=== PATIENT | female | born 1945 | race Caucasian/White ===

== ENCOUNTER 2016-08-13 04:39 | Observation (INO) | payer MEDICARE ==
[~2016-08-13] VITALS: Ht 170.2 cm; Wt 68.4 kg
[2016-08-13] VITALS (9 sets, daily range): BP systolic 101–143; BP diastolic 56–75; PULSE 69–98; RESP 16–20; O2SAT 97–100
[~2016-08-13 04:39] MED LIST: FURO40TA PO; GABA400C PO; Xanax; ZES5 PO; [UNRECOGNIZED DRUG - CODE] PO
[2016-08-13 05:23] LABS: BASOPHILS % (AUTO) 0.8 % (0-3); EOSINOPHILS % (AUTO) 3.5 % (0-5); MONOCYTES % (AUTO) 9.4 % (4-12); Mean Corpuscular Hemoglobin 29.4 pg (27.0-35.0); Mean Corpuscular Volume 85.4 fL (81-100); NEUTROPHILS % (AUTO) 59.8 % (40-74); Platelet Count 266 bil/L (150-400)
[2016-08-13 05:32] LABS: APPEARANCE,URINE CLEAR (CLEAR,HAZY); COLOR,URINE YELLOW (YELLOW); OCCULT BLOOD,URINE NEGATIVE (NEGATIVE); UROBILINOGEN,URINE NORMAL (NORMAL)
[2016-08-13 05:52] LABS: Magnesium 2.1 mg/dL (1.6-2.6)
--- NOTE | 2016-08-13 06:05 | ED.REPORT ---
HPI-General Illness Date of Service Aug 13, 2016 ED Provider: Bobby Cardoso MD The pt is a 70 y/o female w/ a hx of peripheral neuropathy, hyperthyroidism, and asthma presenting to the ED w/ complaints of SOB that began one month ago but worsened 5 hours ago. She checked her HR at 0200, after noticing the SOB and left arm pain and chest discomfort, w/ a pulse oximeter and saw that is was 32 BPM, which she has a picture of, and checked an hour later and saw that it was 56 BPM. She reports taking a full strength aspirin last night. She describes the SOB as worsening w/ exertion, feeling a heaviness in her chest, and it been getting worse over the last month, and it affecting her ADLs. She also reports feeling nauseous and burping helps relieve it. Her HR was as high as 114 when she saw a doctor last week.She also has had increased cramping in her R leg which began about a year ago and has worsened over the last week and leg weakness which causes her to use a walker or cane for the last ten years.She has had a stress test in the past, which she reports passing and had a carotid test done and told she had "a bit of blockage" on the right. She denies any fever, dizziness, lightheadedness, infections, and has not been put on antibiotics recently. She also reports having high BP when in pain, and her face getting "fiery" red and feeling hot during these episodes. Nursing Notes Stated Complaint: HEART RATE HIGH/LOW, NAUSEA, STOMACH PAIN Chief Complaint: Female Abdominal Pain Nursing Notes Reviewed: Yes ([employer], [employer] not reconciled) Allergies: Coded Allergies: Penicillins (Verified Allergy, Severe, RASH, 08/13/16) Quinolones (Verified Allergy, Severe, SEVER RECENT ALLERGY, 08/13/16) atropine (Verified Allergy, Severe, 08/13/16) Her doctor told her diphenoxylate (Verified Allergy, Severe, HIVES, 08/13/16) Replaces DIPHENOXYLATE2 tetracycline (Verified Allergy, Severe, 08/13/16) doxycycline (Verified Allergy, Unknown, 08/13/16) meperidine (Verified Adverse Reaction, Severe, N/V, 08/13/16) morphine (Verified Adverse Reaction, Severe, N/V, 08/13/16) Uncoded Allergies: SULFA (Allergy, Severe, RASH, 02/09/09) LEVOQUIN (Allergy, Unknown, 10/21/14) NKDA (Allergy, Unknown, 02/09/04) Opiate Agonists (Narcotics) (Allergy, Unknown, 02/09/04) MORPHINE CAUSES N/V SULFA=SWELLING,LOMOTIL=HIVES,CATGUT,PCN=HIVES,DEMEROL,MS (Allergy, Unknown , 02/09/04) ANTIDIARRHEA AGENTS (Adverse Reaction, Unknown, 02/09/04) Scheduled Alprazolam (Alprazolam) 1 Mg Tablet 1 MG PO TID Ascorbic Acid (Vitamin C) 1,000 Mg Tab.chew 1,000 MG PO DAILY Aspirin (Aspirin) 81 Mg Tablet 81 MG PO DAILY Cholecalciferol (Vitamin D3) (Vitamin D) 5,000 Unit Capsule 5,000 UNIT PO TID Furosemide (Furosemide) 20 Mg Tab 20 MG PO BID Lactobacillus Combo No.10 (Probiotic) 1 Each Capsule 1 CAPSULE PO DAILY Lisinopril (Lisinopril) 2.5 Mg Tablet 2.5 MG PO DAILY Methimazole (Methimazole) 5 Mg Tablet 1 MG PO DAILY Potassium Chloride (Potassium Chloride) 20 Meq Tab.er.prt 20 MEQ PO DAILY Ranitidine HCl (Acid Truck Safety Inspector) 75 Mg Tablet 150 MG PO BID Zinc Gluconate (Zinc) 50 Mg Tablet 50 MG PO DAILY Scheduled PRN Albuterol HFA (Proair HFA) 8.5 Gm Hfa.aer.ad 1 PUFF IH DAILY PRN PRN For Shortness of Breath Fluticasone Propionate (Flonase Allergy Relief) 50 Mcg/Actuation [place].susp 1 SPRAY NS DAILY PRN PRN Sneezing General Time Seen by MD: 06:09 Chief Complaint Breathing problem Hx Obtained From: Patient, Daughter Arrived By: Walk-in Sudden in Onset?: Yes Onset Occurred: 5 - 8 hours ago Symptom Duration: Intermittent Severity: Current: No pain currently Pertinent Negative: Pt denies other symptoms Recent Healthcare: No recent hospitalization, Recent doctor visit Similar Sx Previous: Yes Past Medical History Past Medical History Hyperthyroid Martinez's esophagus and GERD History of idiopathic neuropathy history of asthma Possible history of peripheral vascular disease, patient previously on Plendil, status post invitation of toes from osteomyelitis years ago Thyroid nodule Past Surgical History Hernia repair Nasal surgery Surgery secondary to osteomyelitis Smoking History Former Smoker (quit in the 70s) Social History Patient's recently (07/2016) Alcohol Use: Denies alcohol use Drug Use: Denies drug use Ambulatory Status Independent Review of Systems Full Review of Systems Constitutional: Denies: Chills, Fever Respiratory: Reports: Shortness of breath, Denies: Non-productive cough Cardiovascular: Reports: Chest pain GI: Reports: Nausea, Denies: Abdominal pain, Vomiting Musculoskeletal: Reports: Extremity pain (L arm pain and R leg cramping), Denies: Neck pain Neurologic: Denies: Dizziness, Lightheaded Complete sys rev & neg: except as marked. Physical Exam Vital Signs Vital Signs Date Time Temp Pulse Resp B/P Pulse Ox O2 Delivery O2 Flow Rate FiO2 08/13/16 07:21 88 18 101/62 97 Room Air 08/13/16 04:42 36.1 84 18 143/75 100 Room Air Initial VS: Reviewed, Vital signs normal General/Constitutional: Awake, Alert Provides somewhat vague history, she a poor historian. Head / Eyes: Atraumatic, Normocephalic ENT: Atraumatic, Airway patent Neck: Atraumatic, Supple, Full range of motion Respiratory / Chest: Atraumatic, Breath sounds NL, No respiratory distress, No rales, No rhonchi, No wheezing Cardiovascular: Heart rate NL, Regular rhythm, Heart sounds NL No bradycardia at this time Abdomen: Atraumatic, Soft, Non-tender Lower Extremity / Pelvis / MS: Inspection NL, Full range of motion Neurologic: Oriented X3, Speech NL, No motor deficits, No sensory deficits Abnormal Mood/Affect: Positive: Anxious, Depressed Interpretation & Diagnostics Lab Results Interpretation Result Diagram: 08/13/16 0515 08/13/16 0515 Test 08/13/16 05:10 08/13/16 05:15 Hold [place] Top Tube Received (Received) White Blood Count 8.8th/mm3 (3.8-10.1) Red Blood Count 4.45mil/mm3 (3.90-5.20) Hemoglobin 13.1g/dL (12.0-15.6) Hematocrit 38.0% (35.0-46.0) Mean Corpuscular Volume 85.4fL (81-100) Mean Corpuscular Hemoglobin 29.4pg (27.0-35.0) Mean Corpuscular Hemoglobin Concent 34.5% (32.0-37.0) Red Cell Distribution Width 14.6% (12.3-15.4) Platelet Count 266bil/L (150-400) Neutrophils (%) (Auto) 59.8% (40-74) Lymphocytes (%) (Auto) 26.3% (14-46) Monocytes (%) (Auto) 9.4% (4-12) Eosinophils (%) (Auto) 3.5% (0-5) Basophils (%) (Auto) 0.8% (0-3) Urine Color Yellow (YELLOW) Urine Appearance Clear (CLEAR,HAZY) Urine pH 6.0 (5.0-8.0) Urine Specific [place] 1.010 (1.003-1.035) Urine Protein Negativemg/dL (NEG,TRACE) Urine Glucose (UA) Negativemg/dL (NEGATIVE) Urine Ketones Negativemg/dL (NEGATIVE) Urine Occult Blood Negative (NEGATIVE) Urine Nitrite Negative (NEGATIVE) Urine Bilirubin Negative (NEGATIVE) Urine Urobilinogen Normalmg/dL (NORMAL) Urine Leukocyte Esterase Negative (NEGATIVE) Urine RBC 0-2/hpf (0-2) Urine WBC 0-5/hpf (0-5) Urine Epithelial Cells Moderate/hpf (NONE-MOD) Urine Crystals None seen (NONE SEEN) Urine Bacteria Few/hpf (NONE-FEW) Urine Hyaline Casts None/lpf (NONE) Urine Granular Casts None seen (NONE SEEN) Urine Waxy Casts None seen (NONE SEEN) Urine Red Blood Cell Casts None seen (NONE SEEN) Urine White Blood Cell Casts None seen (NONE SEEN) Urine Mucus None seen (None Seen) Urine Trichomonas None seen (NONE SEEN) Urine Yeast None (NONE SEEN) Urinalysis Comment None Urine Culture Reflexed Not indicated Hold Urine Received (Received) Sodium Level 139mEq/L (134-144) Potassium Level 3.7mEq/L (3.5-5.2) Chloride Level 96mEq/L (97-108) Carbon Dioxide Level 27mmol/L (18-29) Blood Urea Nitrogen 22mg/dL (8-27) Creatinine 0.86mg/dL (0.57-1.00) Estimat Glomerular Filtration Rate 93mL/min (>59) Glucose Level 120mg/dL (60-99) Calcium Level 10.1mg/dL (8.5-10.1) Magnesium Level 2.1mg/dL (1.6-2.6) Total Bilirubin 0.3mg/dL (0.0-1.2) Aspartate Amino Transf (AST/SGOT) 21U/L (0-50) Alanine Aminotransferase (ALT/SGPT) 13U/L (0-32) Alkaline Phosphatase 112U/L (25-165) Troponin T < 0.010ug/L (0.0-0.011) Total Protein 7.6g/dL (6.4-8.4) Albumin 4.3g/dL (3.4-5.0) Lipase 37U/L (13-60) Thyroid Stimulating Hormone (TSH) 4.110uIU/mL (0.450-4.500) Free Thyroxine 1.33ng/dL (0.82-1.77) Lab Results Interpretation: CBC normal CMP normal Troponin #1 negative Magnesium normal TSH and T4 normal ECG Interpretation ECG Interpretation: NSR at a rate of 70 No PVC on the 12 lead No episodes of bradycardia Time: 06:54 Interpreted by: ED physician X-Ray Chest Interpretation Chest Xray Interpretation: Normal, no acute disease Interpretation / Wet Read by: Wet read ED physician Re-Eval/Medical Decision Med Decision/Clinical Course This is a 70-year-old vague and wandering historian is difficult to focus. It sounds like she recently lost her adding to some stress and anxiety, and she presents today because she developed chest pain, shortness of breath, radiation of the left arm, in the middle the night and took a pulse ox because she is to work with respiratory, and noted her heart rate was 37. She denies palpitations or near-syncope. She is vague as to whether or not there was diaphoresis. She called family member, was brought to the ED. Although is very difficult and took about 10-15 minutes of actual history taking where she talks about ulcerative variety of thinks over variety timelines including months and years, it was the chest discomfort and left arm discomfort and low heart rate that brought her to the emergency department with her family. It took a while to figure out if this staff woke her from sleep, but she says she is "at night owl" and was simply already wide awake when the symptoms occurred. She has had some shortness of breath with exertion this been progressive over a month before this episode of chest discomfort. She denies prior history of known cardiac disease, and had a negative Sick and nuclear stress test in 2010. However she has risk factors of smoking, prediabetes, hypertension, family history, and as well as a history of known peripheral vascular disease (see MRI with runoff of lower extremities in 2009). she has had osteomyelitis of the toes years past, and according to previous notes was on Plendil at one point. She tells me she is not on Plendil present, but she did have aspirin before coming in already. Physical exam is normal there are no hard findings. EKG is no clear acute ischemic disease. Blood work was normal, she is worried about her thyroid if she has recently been placed on methimazole for hyperthyroidism and has a known thyroid nodule, but her thyroid studies today the department are normal. The variety and depth of her symptoms which are nonspecific and she has a diffusely positive review of symptoms, there is a chance that some of her presentation may be stress-related following the of her recently- but she describes enough features with chest pressure or tightness shortness breath left arm radiation, exertional component in the setting of peripheral vascular disease as well as reported low heart rate (she brought in a picture of her pulse ox on her finger with a heart rate of 37) I think it is reasonable to observation admit for telemetry monitoring and serial enzymes with follow-up stress testing. She had no significant dysrhythmic events beyond occasional asymptomatic premature ventricular contractions, she had no bradycardia here. The case is discussed with the hospital's. Nitropaste was initially ordered, was held because the blood pressure was on the low 100s. Currently she does not have any chest discomfort. Case is discussed the hospitalist and the patient's being admitted for further management. Source of Hx: Old records Consultation : Referral / Consult Name: Blake Flores MD Consulted With: Hospitalist Call Returned at: 08:05 Registered Nurse Practitioner: Accepts admit Differential Diagnosis: Positive: Depression, Negative: Abdominal pain, Abscess, Allergies, Bronchitis, acute, Cellulitis, Drug dependence, Fracture, Laceration, Malingering, Medical clearance, Neutropenia, Pneumonia Counseled Regarding: Diagnosis, Lab results, Need for follow-up, Need for admission Discharge & Departure Primary Impression: Chest pain Chest pain type: unspecified Qualified Code: R07.9 - Chest pain, unspecified Additional Impressions: Shortness of breath Depression Depression Type: unspecified Qualified Code: F32.9 - Major depressive disorder, single episode, unspecified Acute stress reaction Bradycardia Disposition: ADMITTED TO HOSPITAL Discharge Condition All VS Reviewed: Yes Condition: Stable Referrals: Malorie Renner PA-C (PCP) Scribe Attestation Portions of this note were transcribed by Farhad Ramsey. I, Dr. Coleman personally performed the history, physical exam and medical decision- making; I reviewed and confirmed the accuracy of the information in the transcribed note. Signed by: Farhad Ramsey. 08/13/2016, 15:00. copies to: Malorie Renner PA-C, Matthew F MD Aug 13, 2016 06:05 Farhad Willson Aug 13, 2016 06:16 SYLWIA RAMSEY Aug 13, 2016 07:23
[2016-08-13] MEDS ORDERED: Nitroglycerin 2% 1 Gm Ointment TOPICAL SCH (06:45)
--- NOTE | 2016-08-13 07:49 | DRSVH ---
PROCEDURE: X-RAY CHEST ONE VIEW, PORTABLE ([id number]) INDICATIONS: SOB TECHNIQUE: One view of the chest was acquired. COMPARISON: [facility], , CHEST 2VW, 06/23/2014, 11:45. FINDINGS: Surgical changes and devices: None. Lungs and pleura: No pleural effusions or pneumothorax. Lungs are clear. Mediastinum: Mediastinal contours appear normal. Heart size is normal. Bones and chest wall: No suspicious bony lesions. Overlying soft tissues appear unremarkable. IMPRESSION: No acute pulmonary process. Dictated by: Grecia Castillo M.D. on 08/13/2016 at 7:48 Approved by: Grecia Castillo M.D. on 08/13/2016 at 7:48
[2016-08-13 07:54] LABS: Magnesium 2.1 mg/dL (1.6-2.6); TROPONIN T < 0.010 ug/L (0.0-0.011)
[2016-08-13] MEDS ORDERED: LISI2.5T PO (08:00)
[2016-08-13] MEDS ORDERED: POTA20TA16 PO (08:00)
[2016-08-13] MEDS ORDERED: FUR20 PO (08:00)
[2016-08-13] MEDS ORDERED: ASPI-973 PO (08:01)
[2016-08-13] MEDS ORDERED: ALPR1TAB7 PO (08:05)
[2016-08-13] MEDS ORDERED: ALBU8.5H2 IH (08:05)
[2016-08-13] MEDS ORDERED: RANI75TA30 PO (08:05)
[2016-08-13] MEDS ORDERED: FLUT9.9S NS (08:08)
[2016-08-13] MEDS ORDERED: ZINC50TA4 PO (08:13)
[2016-08-13] MEDS ORDERED: CHOL500051 PO (08:13)
[2016-08-13] MEDS ORDERED: ASCO100089 PO (08:13)
[2016-08-13] MEDS ORDERED: METH5TAB5 PO (08:13)
[2016-08-13] MEDS ORDERED: LACT1CAP75 PO (08:13)
[2016-08-13] MEDS ORDERED: Alum-Mag Hydrox-Simeth 30 mL Suspension PO PRN ×2 (08:15→08:40)
[2016-08-13] MEDS ORDERED: Ondansetron 2 mg/mL 2 mL Inj IVPUSH PRN ×2 (08:15→08:40)
[2016-08-13] MEDS ORDERED: Polyethylene Glycol (PEG) 17 Gm Powder PO PRN (08:15)
[2016-08-13] MEDS: Heparin 5,000 Unit/mL Inj SUBQ SCH ×2 (08:30→17:51)
[2016-08-13] MEDS ORDERED: 0.9% Sodium Chloride 1,000 ML IV SCH (08:36)
[2016-08-13] MEDS ORDERED: MECL-114 PO (08:50)
--- NOTE | 2016-08-13 09:00 | NUR ---
Admit pt arrived on unit from ED with admit nurse. Med rec and admission completed. Pt is alert and oriented X3. VS within normal limits. On RA. Pt denied chest pain. Patient has mild lift sided droopiness d/t [place] Palsy. Pt has bandages on her right foot that she refused to take off and stated that they are there just to prevent friction. Right 1st and 2nd toe have had surgeries that are healed. Left heel is has blanchable redness. Pt is on observation status d/t neg trops and normal ekg Per tele SR 50-60s w/occasional PVCs.
[2016-08-13 12:24] LABS: APPEARANCE,URINE CLEAR (CLEAR,HAZY); COLOR,URINE STRAW (YELLOW); OCCULT BLOOD,URINE NEGATIVE (NEGATIVE); PH,URINE 7.5 (5.0-8.0); UROBILINOGEN,URINE NORMAL (NORMAL)
[2016-08-13 12:38] LABS: TROPONIN T < 0.010 ug/L (0.0-0.011)
--- NOTE | 2016-08-13 14:13 | NUR ---
Social Work: initial Assessment Late Entry Data & Assessment: SW met with patient, patient's daughter Nisreen Núñez [phone], and patient's friend Coby Grajeda to complete initial assessment, SW role reviewed, and and discharge planning discussed. patient has Medicare and [employer] as insurance and see Malorie Renner PA-C for primary care. Patient does not have VA or LTC benefits. patient lives at home alone in a one story home that has ramp access and one step on the inside. Patient has never been to a Residential Facility and has had HH in the past, but can not recall the name. Patient does not have a DPOA and SW proved patient with the information. Patient does not have any current discharge needs. SW will continue to follow. Plan: Patient will likely discharge via POV. SW will continue to follow. Florin ash LMSW, [facility] Addendum: 08/14/16 at 1424 by FLORIN ASH Amended: Links added.
--- NOTE | 2016-08-13 15:56 | NUR ---
ELIZABETH explained and signed. Copy of ELIZABETH and Medicare self administered medication information provided.
[2016-08-13] MEDS ORDERED: Fluticasone 0.05% 15 Spray/2 Gm 16 Gm Nasal Spray NASAL PRN (16:00)
[2016-08-13] MEDS ORDERED: Albuterol 2.5 mg/3 mL Inhalation Solution NEB PRN (20:00)
--- NOTE | 2016-08-13 22:27 | PCM.HPMED ---
Subjective Date of Service Aug 13, 2016 Primary Provider: Admitting Physician: Blake Flores MD Primary Care Physician: Malorie Renner PA-C Attending Physician: Blake Flores MD Chief Complaint: "My daughter would not stop her mouth until I got here" History of Present Illness: The patient is a 70-year-old white female with history of peripheral neuropathy , hyperthyroidism, and asthma presenting to the [facility] emergency department with complaints of shortness of breath that began 1 month ago but worsened 5 hours prior to admission. She normally goes to bed at 3 or 4 in the morning. And she checked her heart rate at 0200 hrs. and by oximetry reading she found her oxygen saturation to be 98% however her pulse was found to be just 32 bpm. Patient describes her shortness breath is worsening with exertion, feeling of heaviness in her chest, and is been getting worse over the last month. This source of breath with exertion or dyspnea on exertion has been affecting her activities of daily living. She also reported feeling nauseous and burping helps relieve her nausea. Her heart rate was as high as 114 when she recently saw last week. Patient is also been having cramping in her right leg which began about a year ago and has worsened over the last week and leg weakness was just caused her to use her walker or cane for the last 10 years. She had a stress test in the past which is approximately 6 years ago. Patient reports passing the stress test. She will set a carotid Doppler test done and was told that she had a "a bit of blockage" on the right. He denied any fever, dizziness, lightheadedness, infections has not been on any advice recently. She also reported having high blood pressure when pain in her face gets "fiery" red and feeling hot during these episodes. The patient was evaluated by Dr. Kirill Coleman in the emergency department. Dr. Coleman found that she has risk factors of smoking, prediabetes, hypertension and family history as well as known peripheral vascular disease. Had EKG done which showed normal sinus rhythm with no clear acute ischemic changes. Blood work was normal and thyroid studies were also normal. However given the variety and depth of her symptoms and risk factors patient was brought in under observation to the hospitalist service for further evaluation and treatment. Review of Systems: General: Patient is in no apparent distress and has no fever, or chills, nausea , vomiting or diarrhea. Patient has no recent history of weight loss. HEENT: Patient has no headache now but did last night. The patient has no diplopia, patient has no changes in vision. Patient wears glasses. Patient has no problems with ears, nose or throat. Patient has worn dentures since she was 9. Patient has no pharyngitis or history of thrush. Neck: Patient has no stiffness in the neck. Patient has no lymphadenopathy. Patient has no other problems with their neck. Pulmonary: Patient has dyspnea on exertion. However, he has no cough, no expectoration of sputum. Patient has no pleurisy. Patient has chest pain as described above. Patient has no history of asthma or COPD. Cardiovascular: Patient has chest pain as described in history present illness. Patient has no history of heart murmur. Patient has no palpitations. Patient has no history of myocardial infarction. Patient has no history of coronary artery disease. Patient had a negative stress test approximate 6 years ago. Gastrointestinal: Patient has no history of hepatitis A, B or C. Patient has no history of peptic ulcer disease. Patient has no history of gastroesophageal reflux disease. Patient has no history of nausea, vomiting, or diarrhea. Patient has no history of hematemesis, hematochezia, or melena. Patient has no history of colitis. Renal: Patient has no history of kidney disease. No history of kidney stones. Genitourinary: Patient has no history of dysuria, frequency, or incontinence. Patient has no previous history of genitourinary problems. Musculoskeletal: Patient has no history of muscular skeletal problems. Neurologic: Patient has no history of stroke, no history of seizure, no history of TIA. Psychiatric: Patient has no history of psychiatric problems. The remainder of the entire review of systems was reviewed with patient and is as mentioned above otherwise negative. Allergies Coded Allergies: Penicillins (Verified Allergy, Severe, RASH, 08/13/16) Quinolones (Verified Allergy, Severe, SEVER RECENT ALLERGY, 08/13/16) atropine (Verified Allergy, Severe, 08/13/16) Her doctor told her diphenoxylate (Verified Allergy, Severe, HIVES, 08/13/16) Replaces DIPHENOXYLATE2 tetracycline (Verified Allergy, Severe, 08/13/16) doxycycline (Verified Allergy, Unknown, 08/13/16) meperidine (Verified Adverse Reaction, Severe, N/V, 08/13/16) morphine (Verified Adverse Reaction, Severe, N/V, 08/13/16) Uncoded Allergies: SULFA (Allergy, Severe, RASH, 02/09/09) LEVOQUIN (Allergy, Unknown, 10/21/14) NKDA (Allergy, Unknown, 02/09/04) Opiate Agonists (Narcotics) (Allergy, Unknown, 02/09/04) MORPHINE CAUSES N/V SULFA=SWELLING,LOMOTIL=HIVES,CATGUT,PCN=HIVES,DEMEROL,MS (Allergy, Unknown , 02/09/04) ANTIDIARRHEA AGENTS (Adverse Reaction, Unknown, 02/09/04) Home Medications Scheduled Alprazolam (Alprazolam) 1 Mg Tablet 1 MG PO TID Ascorbic Acid (Vitamin C) 1,000 Mg Tab.chew 1,000 MG PO DAILY Aspirin (Aspirin) 81 Mg Tablet 81 MG PO DAILY Cholecalciferol (Vitamin D3) (Vitamin D) 5,000 Unit Capsule 5,000 UNIT PO TID Furosemide (Furosemide) 20 Mg Tab 20 MG PO BID Lactobacillus Combo No.10 (Probiotic) 1 Each Capsule 1 CAPSULE PO DAILY Lisinopril (Lisinopril) 2.5 Mg Tablet 2.5 MG PO DAILY Methimazole (Methimazole) 5 Mg Tablet 1 MG PO DAILY Potassium Chloride (Potassium Chloride) 20 Meq Tab.er.prt 20 MEQ PO DAILY Ranitidine HCl (Acid Technology Infusion Specialist) 75 Mg Tablet 150 MG PO BID Zinc Gluconate (Zinc) 50 Mg Tablet 50 MG PO DAILY Scheduled PRN Albuterol HFA (Proair HFA) 8.5 Gm Hfa.aer.ad 1 PUFF IH DAILY PRN PRN For Shortness of Breath Fluticasone Propionate (Flonase Allergy Relief) 50 Mcg/Actuation [place].susp 1 SPRAY NS DAILY PRN PRN Sneezing PMH Hyperthyroid Martinez's esophagus and GERD History of idiopathic neuropathy history of asthma Possible history of peripheral vascular disease, patient previously on Plendil, status post invitation of toes from osteomyelitis years ago Thyroid nodule Surgical History The patient has had a tonsillectomy The patient has had a cholecystectomy The patient has had bilateral cataract surgery Patient has had a total abdominal hysterectomy The patient has had all of her teeth removed as had false teeth since she was 9 years old due to hypocalcemia Surgery secondary to osteomyelitis The patient denies ever having the following: Hernia repair Nasal surgery Family History The patient's mother at the age of 92 from "failure to thrive" The patient's father at 70 due to heart disease The patient had 3 sisters one after cardiac surgery with pneumonia one sister has COPD The patient had one brother who at the age of 77 years old from a ruptured appendix Social History Hx Alcohol Use: No Hx Substance Use: No Smoking Status: Former Smoker (The patient smoked 3 packs per day for 16 years. For a 99-ppyz-vovs history of smoking) Living Arrangement: Alone (The patient's daughter lives next door to her.) Additional Information The patient was born in [place] and [place] town called [place]. She went to [employer] and graduated high school. 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 She was a at the age of 68. She is 3 para 3, with 3 daughters one of her daughters Nisreen lives next door. Exam Vital Signs Vital Sign - Last Date Time Temp Pulse Resp B/P Pulse Ox O2 Delivery O2 Flow Rate FiO2 08/13/16 21:11 36.8 90 20 130/73 97 Room Air Exam General: Patient is lying in bed in no apparent distress. She is very cooperative. HEENT: Head is atraumatic and normocephalic. Eyes: Pupils are equally round and reactive to light and accommodation. Extraocular muscles are intact. Sclera are white, anicteric. Subconjunctival mucosa is pink. Ears and nose are unremarkable. Oropharynx: There is no mucosal lesions, there is no thrush, there is no pharyngitis. She is edentulous Neck: Is supple, there are no nodes, or masses or tenderness. Chest: Is clear to auscultation and percussion. There are no rales, rhonchi, wheezes or rubs. Heart: Rate, rhythm is regular. There is no murmur, rub or gallop. Abdomen: Good bowel sounds are present. Abdomen is soft, nontender, no organomegaly or masses were appreciated. Extremities: Are symmetrical and well perfused. There is no edema, there is no cellulitis, no rash. There is evidence of previous surgery in the right great toe. Neurologic: There are no focal neurological deficits. Cranial nerves II through XII are intact. There are no sensory or motor deficits. Psychiatric: Patients mood is calm and shows no sign of agitation. Genital: Deferred Rectal: Deferred Lab and Diagnostics Result Diagram: 08/13/1651408/13/16514 X-Rays, CTs and MRIs PROCEDURE: X-RAY CHEST ONE VIEW, PORTABLE ([id number]) INDICATIONS: SOB TECHNIQUE: One view of the chest was acquired. COMPARISON: [facility], , CHEST 2VW, 06/23/2014, 11:45. FINDINGS: Surgical changes and devices: None. Lungs and pleura: No pleural effusions or pneumothorax. Lungs are clear. Mediastinum: Mediastinal contours appear normal. Heart size is normal. Bones and chest wall: No suspicious bony lesions. Overlying soft tissues appear unremarkable. IMPRESSION: No acute pulmonary process. Dictated by: Grecia Castillo M.D. on 08/13/2016 at 7:48 Approved by: Grecia Castillo M.D. on 08/13/2016 at 7:48 Cardiac Echo Impressions A 2012 echo shows: Echocardiogram Report Name: OCTAVIO MENCHACA Study Date: 02/13/2013 Height: 63 in Hospital Exam Location: [facility] Weight: 166 lb Gender: Female BSA: 1.8 meters2 : 1945 Age: 67 yrs BP: 120/64 mmHg Reason For Study: Dyspnea Ordering Physician: CORTEZ DELA CRUZ Performed By: Maisha Sibley Referring Physician: Norberto Liang Interpretation Summary Normal left ventricle size with ejection fraction 60-65%. Grade I diastolic dysfunction. Normal right ventricle size and function. Moderately dilated left atrium. Moderate aortic sclerosis. Mild mitral annular calcification. Mild-moderate mitral regurgitation. Mild-moderate tricuspid regurgitation. Right ventricular systolic pressure is estimated to be 19 mmHg plus the clinically estimated CVP which cannot be estimated on this exam. Comparison is made with the echocardiogram of 04/11/11, mitral and tricuspid regurgitation severity has progressed. Assessment & Plan The patient is a 70-year-old white female with history of peripheral neuropathy , hyperthyroidism, and asthma presenting to the [facility] emergency department with complaints of shortness of breath that began 1 month ago but worsened 5 hours prior to admission. She normally goes to bed at 3 or 4 in the morning. And she checked her heart rate at 0200 hrs. and by oximetry reading she found her oxygen saturation to be 98% however her pulse was found to be just 32 bpm. Patient describes her shortness breath is worsening with exertion, feeling of heaviness in her chest, and is been getting worse over the last month. This source of breath with exertion or dyspnea on exertion has been affecting her activities of daily living. She also reported feeling nauseous and burping helps relieve her nausea. Her heart rate was as high as 114 when she recently saw last week. Patient is also been having cramping in her right leg which began about a year ago and has worsened over the last week and leg weakness was just caused her to use her walker or cane for the last 10 years. She had a stress test in the past which is approximately 6 years ago. Patient reports passing the stress test. She will set a carotid Doppler test done and was told that she had a "a bit of blockage" on the right. He denied any fever, dizziness, lightheadedness, infections has not been on any advice recently. She also reported having high blood pressure when pain in her face gets "fiery" red and feeling hot during these episodes. The patient was evaluated by Dr. Kirill Coleman in the emergency department. Dr. Coleman found that she has risk factors of smoking, prediabetes, hypertension and family history as well as known peripheral vascular disease. Had EKG done which showed normal sinus rhythm with no clear acute ischemic changes. Blood work was normal and thyroid studies were also normal. However given the variety and depth of her symptoms and risk factors patient was brought in under observation to the hospitalist service for further evaluation and treatment. # Chest pain associated with dyspnea on exertion. - There is no evidence of acute coronary syndrome at this time based upon patient's cardiac enzymes which are normal and EKG which shows no evidence of ischemia. - Rule out exertional angina - Rule out secondary in part due to the aortic stenosis. I had noticed that patient had moderate aortic stenosis in 2012. Certainly this may have progressed since then. - Check nuclear medicine exercise stress test in a.m. # Hyperthyroidism with history of thyroid nodule - Continue methimazole # History of Martinez's esophagus with gastroesophageal reflux disease - Add Protonix during a stressful admission # History of idiopathic neuropathy - Continue home medications # History of peripheral vascular occlusive disease - Monitor closely. # History of osteomyelitis the distal right lower extremity Disposition: If nuclear medicine stress test is negative tomorrow, patient will likely be able to be discharged home. Dr. Romeo will follow in a.m. Pain Evaluation: Adequate Pain Control GI Prophylaxis: Proton Pump Inhibitor VTE Prophylaxis: Sub-Q Heparin (Unfractionated) Resuscitation Status: CPR: Attempt Resuscitation Blake Flores MD Aug 13, 2016 22:27
[2016-08-14] MEDS: Heparin 5,000 Unit/mL Inj SUBQ SCH ×2 (00:50→12:34)
[2016-08-14 00:58] VITALS: BP 115/65; PULSE 75; RESP 20; O2SAT 97
--- NOTE | 2016-08-14 05:21 | NUR ---
NOC Activity Pt has been pleasant and cooperative with care. Denies chest pain, sob, n/v or abd discomfort. HS meds administered as scheduled and has been put on NPO since MN for Cardiac stress test. Hourly rounding in effect.
[2016-08-14 05:28] VITALS: BP 113/72; PULSE 69; RESP 18; O2SAT 94
[2016-08-14 05:52] VITALS: BP 105/58; PULSE 69; RESP 18; O2SAT 96
[2016-08-14 06:16] LABS: BASOPHILS % (AUTO) 1.2 % (0-3); EOSINOPHILS % (AUTO) 5.3 % (0-5); Mean Corpuscular Hemoglobin 28.7 pg (27.0-35.0); Mean Corpuscular Volume 88.2 fL (81-100); NEUTROPHILS % (AUTO) 45.6 % (40-74); Platelet Count 251 bil/L (150-400)
[2016-08-14 07:28] VITALS: PULSE 59; RESP 16; O2SAT 95
[2016-08-14] MEDS ORDERED: Pantoprazole 40 mg ER24 Tablet PO SCH (07:30)
[2016-08-14 07:31] LABS: TROPONIN T < 0.010 ug/L (0.0-0.011)
[2016-08-14 07:52] LABS: Magnesium 2.1 mg/dL (1.6-2.6); Phosphorus 4.2 mg/dL (2.5-4.9)
[2016-08-14] MEDS ORDERED: Potassium Chloride 20 mEq SR Tablet PO SCH (08:30)
[2016-08-14] MEDS ORDERED: Lactobacillus Rhamnosus 10 Bil Unit Capsule PO SCH (08:30)
[2016-08-14] MEDS ORDERED: Ascorbic Acid 500 mg Tablet PO SCH (08:30)
--- NOTE | 2016-08-14 09:05 | NUR ---
Pt off floor for stress test at 0905 Taken via . No s/sx of distress.
[2016-08-14 09:33] VITALS: PULSE 57
--- NOTE | 2016-08-14 10:11 | DRSVH ---
PROCEDURE: X-RAY CHEST, TWO VIEWS ([id number]) INDICATIONS: Chest Pain TECHNIQUE: 2 views of the chest were acquired. COMPARISON: [facility], CR, XR CHEST 1VW (PORTABLE), 08/13/2016, 7:00. FINDINGS: Surgical changes and devices: Clips projecting in the right upper quadrant. Lungs and pleura: No pleural effusions or pneumothorax. No acute disease. Mediastinum: Mediastinal contours are normal. Heart size is normal. Bones and chest wall: No suspicious bony abnormalities. Severe lateral curvature of the spine as bef ore Soft tissues appear unremarkable. IMPRESSION: No acute disease. Dictated by: Jax Salazar M.D. on 08/14/2016 at 10:06 Approved by: Jax Salazar M.D. on 08/14/2016 at 10:09
[2016-08-14 13:25] VITALS: BP 125/76; PULSE 93; RESP 18; O2SAT 99
--- NOTE | 2016-08-14 13:57 | DRSVH ---
PROCEDURE: 1 DAY PHARMACOLOGICAL STRESS TEST Rest and pharmacological stress myocardial perfusion SPECT with gated imaging and ejection fraction RADIOPHARMACEUTICAL: 26.3 mCi Tc-99m tetrafosmin IV at rest and 8.6 mCi Tc-99m tetrafosmin IV at peak effect of pharmacological stress. A [id number] was performed. INDICATIONS: Chest pain with bradycardia TECHNIQUE: Radiopharmaceutical was injected at peak stress test, and also at rest. SPECT images wer e obtained. SPECT myocardial perfusion images were displayed in short axis, horizontal long axis, an d vertical long axis views. Gated images were reviewed using [employer] software. COMPARISON: None. CARDIAC STRESS: A pharmacologic stress test was performed under the supervision of an attending staff, using an infus ion of 5.0 ml Lexiscan. Hemodynamic data: There is normal blood pressure and heart rate response to pharmacologic stress. Symptoms: The patient denied anginal chest pain. Aminophylline: Not administered. EKG: No diagnostic changes of ischemia; no ectopy. FINDINGS: Raw data: There is good myocardial uptake of radiotracer. No significant motion artifacts. Left ventricle function: Gated images demonstrate normal left ventricular wall thickening. No segme ntal wall motion abnormalities. No transient ischemic dilation. Left ventricle resting end diastoli c volume is 48 mL. Left ventricle stress ejection fraction is 82%; normal range is above 45%. Myocardial perfusion: There is normal distribution of activity in the right and left ventricular linda cardium. No fixed or reversible perfusion defects. IMPRESSION: 1. No stress perfusion defects to indicate ischemia. 2. No EKG changes of ischemia. 3. Ejection fraction 82%. PQRS ATTESTATIONS: Measure 322 - Is this imaging test primarily performed on a low-risk surgery patient for preoperative evaluation within 30 days preceding their low-risk non-cardiac surgery? Low-risk surgery is defined as cardiac or myocardial infarction less than 1%, including (but not limited to) endoscopic pr ocedures, superficial procedures, cataract surgery, and excisional breast surgery: Answer: No Measure 323 - Is this imaging test performed primarily for the monitoring of an asymptomatic patient who had percutaneous coronary intervention on the visit date or within 2 years of the visit date? An swer: No Measure 324 - Is this imaging test performed primarily for the initial detection and risk assessment on an asymptomatic, low coronary heart disease patient? Low CHD risk definition = clinicians should consider the maximum number of available patient factors used to estimate risk based on [place] (A TP III criteria), typically age, gender, diabetes, smoking status, and use of blood pressure medicati on, and integrate age appropriate estimates for missing elements, such as LDL or standard blood press ure. Answer: No Dictated by: Grecia Castillo M.D. on 08/14/2016 at 13:52 Approved by: Grecia Castillo M.D. on 08/14/2016 at 13:55
--- NOTE | 2016-08-14 14:25 | PCM.DIMED ---
Discharge Instructions Date of Service August 14, 2016 Dates of Hospitalization Aug 13, 2016 at 08:34 Discharge Diagnosis Discharge Diagnosis chest pain, non-anginal Diet Low fat, Low Sodium, Heart Healthy Activity No restrictions Call your provider Shortness of breath, Chest pain Patient Instructions You were hospitalized with chest pain, concerning for heart attack. You underwent stress test, which didn't show any signs of heart attack nor in blood works and EKG. Please note that it is strongly recommended to have healthy life style, healthy diet, regular exercise to prevent future episode of heart attack of stroke. Follow-up plan Please follow up with your primary doctor in 2weeks Follow-up Provider: Keyla De La Torre MD Follow-up with PCP in: 2 weeks Shayla Romeo MD August 14, 2016 14:24
--- NOTE | 2016-08-14 14:35 | NUR ---
Social Work: Discharge Data: Pt is on day 1 of hospitalization for CP, SOB, Braducardia. Pt is medically ready to discharge home today and is up and independent in room. Pt will discharge home via POV with no needs Assessment: Pt who is independent at baseline. Plan: Patient will discharge home via POV. ALVARO Mcqueen
--- NOTE | 2016-08-14 15:29 | NUR ---
Discharge Reviewed discharge paperwork and care notes with pt, no new prescriptions- disclaimer signed. IV DCd intact, Tele removed, all belongings with pt. Pt denies pain, SOB with no s/sx of distress. Pt escorted out of unit in WC, daughter is driving pt home.
--- NOTE | 2016-08-15 17:06 | PCM.DC.MED ---
Discharge Summary Date of Service August 14, 2016 Dates of Hospitalization Date of Hospital Admission Aug 13, 2016 at 08:34 Date of Discharge: August 14, 2016 Providers: Admitting Physician: Blake Flores MD Primary Care Physician: Malorie Renner PA-C Attending Physician: Blake Flores MD Diagnosis at Time of Discharge Diagnosis at Time of Discharge chest pain, non-anginal Procedures XRay, CTs & MRIs PROCEDURE: X-RAY CHEST ONE VIEW, PORTABLE ([id number]) INDICATIONS: SOB TECHNIQUE: One view of the chest was acquired. COMPARISON: [facility], , CHEST 2VW, 06/23/2014, 11:45. FINDINGS: Surgical changes and devices: None. Lungs and pleura: No pleural effusions or pneumothorax. Lungs are clear. Mediastinum: Mediastinal contours appear normal. Heart size is normal. Bones and chest wall: No suspicious bony lesions. Overlying soft tissues appear unremarkable. IMPRESSION: No acute pulmonary process. Dictated by: Grecia Castillo M.D. on 08/13/2016 at 7:48 Approved by: Grecia Castillo M.D. on 08/13/2016 at 7:48 Cardiac Echo Impression A 2012 echo shows: Echocardiogram Report Name: OCTAVIO MENCHACA Study Date: 02/13/2013 Height: 63 in Hospital Exam Location: [facility] Weight: 166 lb Gender: Female BSA: 1.8 meters2 : 1945 Age: 67 yrs BP: 120/64 mmHg Reason For Study: Dyspnea Ordering Physician: CORTEZ DELA CRUZ Performed By: Maisha Sibley Referring Physician: Norberto Liang Interpretation Summary Normal left ventricle size with ejection fraction 60-65%. Grade I diastolic dysfunction. Normal right ventricle size and function. Moderately dilated left atrium. Moderate aortic sclerosis. Mild mitral annular calcification. Mild-moderate mitral regurgitation. Mild-moderate tricuspid regurgitation. Right ventricular systolic pressure is estimated to be 19 mmHg plus the clinically estimated CVP which cannot be estimated on this exam. Comparison is made with the echocardiogram of 04/11/11, mitral and tricuspid regurgitation severity has progressed. Brief History HPI obtained by on 08/13 The patient is a 70-year-old white female with history of peripheral neuropathy , hyperthyroidism, and asthma presenting to the [facility] emergency department with complaints of shortness of breath that began 1 month ago but worsened 5 hours prior to admission. She normally goes to bed at 3 or 4 in the morning. And she checked her heart rate at 0200 hrs. and by oximetry reading she found her oxygen saturation to be 98% however her pulse was found to be just 32 bpm. Patient describes her shortness breath is worsening with exertion, feeling of heaviness in her chest, and is been getting worse over the last month. This source of breath with exertion or dyspnea on exertion has been affecting her activities of daily living. She also reported feeling nauseous and burping helps relieve her nausea. Her heart rate was as high as 114 when she recently saw last week. Patient is also been having cramping in her right leg which began about a year ago and has worsened over the last week and leg weakness was just caused her to use her walker or cane for the last 10 years. She had a stress test in the past which is approximately 6 years ago. Patient reports passing the stress test. She will set a carotid Doppler test done and was told that she had a "a bit of blockage" on the right. He denied any fever, dizziness, lightheadedness, infections has not been on any advice recently. She also reported having high blood pressure when pain in her face gets "fiery" red and feeling hot during these episodes. The patient was evaluated by Dr. Kirill Coleman in the emergency department. Dr. Coleman found that she has risk factors of smoking, prediabetes, hypertension and family history as well as known peripheral vascular disease. Had EKG done which showed normal sinus rhythm with no clear acute ischemic changes. Blood work was normal and thyroid studies were also normal. However given the variety and depth of her symptoms and risk factors patient was brought in under observation to the hospitalist service for further evaluation and treatment. Hospital Course The patient is a 70-year-old white female with history of peripheral neuropathy , hyperthyroidism, and asthma presenting to the [facility] emergency department with complaints of shortness of breath that began 1 month ago but worsened 5 hours prior to admission. She normally goes to bed at 3 or 4 in the morning. And she checked her heart rate at 0200 hrs. and by oximetry reading she found her oxygen saturation to be 98% however her pulse was found to be just 32 bpm. Patient describes her shortness breath is worsening with exertion, feeling of heaviness in her chest, and is been getting worse over the last month. This source of breath with exertion or dyspnea on exertion has been affecting her activities of daily living. She also reported feeling nauseous and burping helps relieve her nausea. Her heart rate was as high as 114 when she recently saw last week. Patient is also been having cramping in her right leg which began about a year ago and has worsened over the last week and leg weakness was just caused her to use her walker or cane for the last 10 years. She had a stress test in the past which is approximately 6 years ago. Patient reports passing the stress test. She will set a carotid Doppler test done and was told that she had a "a bit of blockage" on the right. He denied any fever, dizziness, lightheadedness, infections has not been on any advice recently. She also reported having high blood pressure when pain in her face gets "fiery" red and feeling hot during these episodes. The patient was evaluated by Dr. Kirill Coleman in the emergency department. Dr. Coleman found that she has risk factors of smoking, prediabetes, hypertension and family history as well as known peripheral vascular disease. Had EKG done which showed normal sinus rhythm with no clear acute ischemic changes. Blood work was normal and thyroid studies were also normal. However given the variety and depth of her symptoms and risk factors patient was brought in under observation to the hospitalist service for further evaluation and treatment. # Chest pain associated with dyspnea on exertion. There was no evidence of acute coronary syndrome at this time based upon patient's cardiac enzymes which are normal and EKG which shows no evidence of ischemia. pt underwent stress test , which didn't show any perfusion defect. No event was observed on telemetry. Although pt had hx of aortic stenosis, pt was ambulating without symptoms, pt deemed safe for discharge to home, recommended to repeat echocardiogram as an outpatient. # Hyperthyroidism with history of thyroid nodule, pt was in euthyroid state, continued methimazole # History of Martinez's esophagus with gastroesophageal reflux disease, continued Protonix during a stressful admission # History of idiopathic neuropathy, Continued home medications # History of peripheral vascular occlusive disease, stable # History of osteomyelitis the distal right lower extremity Exam Vital Signs (Last) Date Time Temp Pulse Resp B/P Pulse Ox O2 Delivery O2 Flow Rate FiO2 08/14/16 13:25 36.9 93 18 125/76 99 Room Air Exam NAD, comfortably laying down on the bed no JVD, MMM, no LAD RRR, nl s1, s2 no mrg CTAB, no w,c S,ND,NT,normoactive BS+ warm, no edema, pulses 2/2 Test 08/13/16 05:10 08/13/16 05:15 08/13/16 09:00 08/14/16 05:58 Hold Bermeo Top Tube Received (Received) Urine Color Straw (YELLOW) Urine Appearance Clear (CLEAR,HAZY) Urine pH 7.5 (5.0-8.0) Urine Specific [place] 1.004 (1.003-1.035) Urine Protein Negativemg/dL (NEG,TRACE) Urine Glucose (UA) Negativemg/dL (NEGATIVE) Urine Ketones Negativemg/dL (NEGATIVE) Urine Occult Blood Negative (NEGATIVE) Urine Nitrite Negative (NEGATIVE) Urine Bilirubin Negative (NEGATIVE) Urine Urobilinogen Normalmg/dL (NORMAL) Urine Leukocyte Esterase Negative (NEGATIVE) Urine RBC 0-2/hpf (0-2) Urine WBC 0-5/hpf (0-5) Urine Epithelial Cells Few/hpf (NONE-MOD) Urine Crystals None seen (NONE SEEN) Urine Bacteria None/hpf (NONE-FEW) Urine Hyaline Casts None/lpf (NONE) Urine Granular Casts None seen (NONE SEEN) Urine Waxy Casts None seen (NONE SEEN) Urine Red Blood Cell Casts None seen (NONE SEEN) Urine White Blood Cell Casts None seen (NONE SEEN) Urine Mucus None seen (None Seen) Urine Trichomonas None seen (NONE SEEN) Urine Yeast None (NONE SEEN) Urinalysis Comment None Urine Culture Reflexed Not indicated Hold Urine Received (Received) Lipase 37U/L (13-60) Free Thyroxine 1.33ng/dL (0.82-1.77) Thyroid Stimulating Hormone (TSH) 4.140uIU/mL (0.450-4.500) White Blood Count 7.3th/mm3 (3.8-10.1) Red Blood Count 4.14mil/mm3 (3.90-5.20) Hemoglobin 11.9g/dL (12.0-15.6) Hematocrit 36.5% (35.0-46.0) Mean Corpuscular Volume 88.2fL (81-100) Mean Corpuscular Hemoglobin 28.7pg (27.0-35.0) Mean Corpuscular Hemoglobin Concent 32.6% (32.0-37.0) Red Cell Distribution Width 14.6% (12.3-15.4) Platelet Count 251bil/L (150-400) Neutrophils (%) (Auto) 45.6% (40-74) Lymphocytes (%) (Auto) 39.8% (14-46) Monocytes (%) (Auto) 8.0% (4-12) Eosinophils (%) (Auto) 5.3% (0-5) Basophils (%) (Auto) 1.2% (0-3) Sodium Level 140mEq/L (134-144) Potassium Level 4.4mEq/L (3.5-5.2) Chloride Level 100mEq/L (97-108) Carbon Dioxide Level 26mmol/L (18-29) Blood Urea Nitrogen 27mg/dL (8-27) Creatinine 0.83mg/dL (0.57-1.00) Estimat Glomerular Filtration Rate 97mL/min (>59) Glucose Level 102mg/dL (60-99) Calcium Level 8.8mg/dL (8.5-10.1) Phosphorus Level 4.2mg/dL (2.5-4.9) Magnesium Level 2.1mg/dL (1.6-2.6) Total Bilirubin 0.3mg/dL (0.0-1.2) Aspartate Amino Transf (AST/SGOT) 16U/L (0-50) Alanine Aminotransferase (ALT/SGPT) 12U/L (0-32) Alkaline Phosphatase 98U/L (25-165) Troponin T < 0.010ug/L (0.0-0.011) Total Protein 6.3g/dL (6.4-8.4) Albumin 3.7g/dL (3.4-5.0) Discharge Medications Discharge Medications Alprazolam (Alprazolam) 1 Mg Tablet 1 MG PO TID (Reported) Ascorbic Acid (Vitamin C) 1,000 Mg Tab.chew 1,000 MG PO DAILY (Reported) Aspirin (Aspirin) 81 Mg Tablet 81 MG PO DAILY (Reported) Cholecalciferol (Vitamin D3) (Vitamin D) 5,000 Unit Capsule 5,000 UNIT PO TID ( Reported) Furosemide (Furosemide) 20 Mg Tab 20 MG PO BID (Reported) Lactobacillus Combo No.10 (Probiotic) 1 Each Capsule 1 CAPSULE PO DAILY ( Reported) Lisinopril (Lisinopril) 2.5 Mg Tablet 2.5 MG PO DAILY (Reported) Meclizine (Bonine) 25 Mg Tab.chew 25 MG PO TID or PRN (Reported) Methimazole (Methimazole) 5 Mg Tablet 1 MG PO DAILY (Reported) Potassium Chloride (Potassium Chloride) 20 Meq Tab.er.prt 20 MEQ PO DAILY ( Reported) Ranitidine HCl (Acid Artillery Maintenance Supervisor) 75 Mg Tablet 150 MG PO BID (Reported) Zinc Gluconate (Zinc) 50 Mg Tablet 50 MG PO DAILY (Reported) As needed Albuterol HFA (Proair HFA) 8.5 Gm Hfa.aer.ad 1 PUFF IH DAILY PRN PRN For Shortness of Breath (Reported) Fluticasone Propionate (Flonase Allergy Relief) 50 Mcg/Actuation [place].susp 1 SPRAY NS DAILY PRN PRN Sneezing (Reported) Followup Plan Disposition: home Follow-up plan Please follow up with your primary doctor in 2weeks Discharge Diet: Low fat, Low Sodium, Heart Healthy Discharge Activity: No restrictions Patient Instructions You were hospitalized with chest pain, concerning for heart attack. You underwent stress test, which didn't show any signs of heart attack nor in blood works and EKG. Please note that it is strongly recommended to have healthy life style, healthy diet, regular exercise to prevent future episode of heart attack of stroke. Follow-up Provider: Keyla De La Torre MD Follow-up with PCP in: 2 weeks Time spent 65min Shayla Romeo MD August 14, 2016 17:13
== END 2016-08-14 16:17 | disposition home or self-care (01) ==
LOC: SED 04:39 → MPC 08:34
PROVIDERS: ADMIT Internal Medicine Infectious Disease; ATTEND Internal Medicine Infectious Disease
DX: R07.9 Chest pain, unspecified (principal); R06.00 Dyspnea, unspecified; G60.9 Hereditary and idiopathic neuropathy, unspecified; E05.20 Thyrotoxicosis with toxic multinodular goiter without thyrotoxic crisis or storm; J45.909 Unspecified asthma, uncomplicated; K22.70 Barrett's esophagus without dysplasia; K21.9 Gastro-esophageal reflux disease without esophagitis; I73.9 Peripheral vascular disease, unspecified; F32.9 Major depressive disorder, single episode, unspecified; M86.8X6 Other osteomyelitis, lower leg; Z87.891 Personal history of nicotine dependence; Z79.82 Long term (current) use of aspirin; Z79.51 Long term (current) use of inhaled steroids
CPT/HCPCS: 36415; 71010; 71020; 78452; 80053; 81000; 83690; 83735; 84100; 84439; 84443; 84484; 85025; 93005; 93017; 94664; 96374; 99285; A9502; G0378; J1644; J2405; J2785; J7613

== ENCOUNTER 2016-10-04 00:07 | Day surgery (SDC) | payer MEDICARE ==
[~2016-10-04] VITALS: Ht 172.7 cm; Wt 68.0 kg
[~2016-10-04 00:07] MED LIST changes: +ALBU8.5H2 IH; +ALPR1TAB7 PO; +ASCO100089 PO; +ASPI-973 PO; +CHOL500051 PO; +FLUT9.9S NS; +FUR20 PO; -FURO40TA PO; -GABA400C PO; +LACT1CAP75 PO; +LISI2.5T PO; +MECL-114 PO; +METH5TAB5 PO; +POTA20TA16 PO; +RANI75TA30 PO; -Xanax; -ZES5 PO; +ZINC50TA4 PO; -[UNRECOGNIZED DRUG - CODE] PO
[2016-10-04] MEDS ORDERED: Propofol 10 mg/mL 20 mL Inj ONE (00:08)
[2016-10-04] MEDS ORDERED: Lactated Ringer's 1,000 ML IV ONE (06:00)
[2016-10-04 07:21] VITALS: BP 114/60; PULSE 46; RESP 14; O2SAT 100
[2016-10-04] MEDS ORDERED: Lactated Ringer's 1,000 ML IV SCH (07:52)
--- NOTE | 2016-10-04 07:52 | PCM.HPANE ---
Patient Data Date of Service: Oct 04, 2016 Surgeon Admitting Provider: Attending Provider:Marvin Pereira MD Primary Care Physician:Malorie Renner PA-C Other Provider:Lupe Lynne Anesthesia Reason for Visit Bright Red Rectal Bleeding/Gerd Ht/WT & BMI Height (Feet): 5 Height (Inches): 8 Weight (Kilograms): 68 Body Mass Index 22.00 Allergies Coded Allergies: Penicillins (Verified Allergy, Severe, RASH, 08/13/16) Quinolones (Verified Allergy, Severe, SEVER RECENT ALLERGY, 08/13/16) atropine (Verified Allergy, Severe, 08/13/16) Her doctor told her diphenoxylate (Verified Allergy, Severe, HIVES, 08/13/16) Replaces DIPHENOXYLATE2 tetracycline (Verified Allergy, Severe, 08/13/16) Sulfa (Sulfonamide Antibiotics) (Verified Allergy, Unknown, 10/03/16) doxycycline (Verified Allergy, Unknown, 08/13/16) meperidine (Verified Adverse Reaction, Severe, N/V, 08/13/16) morphine (Verified Adverse Reaction, Severe, N/V, 08/13/16) Uncoded Allergies: SULFA (Allergy, Severe, RASH, 02/09/09) LEVOQUIN (Allergy, Unknown, 10/21/14) NKDA (Allergy, Unknown, 02/09/04) Opiate Agonists (Narcotics) (Allergy, Unknown, 02/09/04) MORPHINE CAUSES N/V SULFA=SWELLING,LOMOTIL=HIVES,CATGUT,PCN=HIVES,DEMEROL,MS (Allergy, Unknown , 02/09/04) ANTIDIARRHEA AGENTS (Adverse Reaction, Unknown, 02/09/04) Past Anesthesia History Anesthesia History: Positive for:: Anesthesia Reactions (VAGAL RESPONSESX2), Denies:: Abnormal Airway, Difficult Intubation, Fam Anesthesia Reaction, Fam Malignant Hypertherm, Malignant Hyperthermia Diabetes History Hx Diabetes?: No 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, NOT ACTIVE) Medications Blood Thinner: Aspirin Last Dose Blood Thinner: Oct 02, 2016 Home Meds Incl Beta Rosalio: No Reported Medications Meclizine (Bonine)25 Mg Tab.chew25 Mg PO TID or PRN Vertigo 08/13/16 Lactobacillus Combo No.10 (Probiotic)1 Each Capsule1 Capsule PO DAILY 08/13/16 Zinc Gluconate (Zinc)50 Mg Kyevem68 Mg PO DAILY 08/13/16 Ascorbic Acid (Vitamin C)1,000 Mg Tab.chew1,000 Mg PO DAILY 08/13/16 Cholecalciferol (Vitamin D3) (Vitamin D)5,000 Unit Capsule5,000 Unit PO TID 08/13/16 Fluticasone Propionate (Flonase Allergy Relief)50 Mcg/Actuation [place].susp1 [place] NS DAILY PRN Sneezing 08/13/16 Albuterol HFA (Proair HFA)8.5 Gm Hfa.aer.ad1 Puff IH DAILY PRN For Shortness of Breath 08/13/16 Alprazolam 1 Mg Tablet1 Mg PO TID 08/13/16 Ranitidine HCl (Acid Lumber Tying Machine Operator)75 Mg [id number] Mg PO BID 08/13/16 Aspirin 81 Mg Mwspmk78 Mg PO DAILY 08/13/16 Lisinopril 2.5 Mg Tablet2.5 Mg PO DAILY 08/13/16 Potassium Chloride 20 Meq Tab.er.prt20 Meq PO DAILY 08/13/16 Furosemide 20 Mg Tab20 Mg PO BID 08/13/16 Discontinued Reported Medications Methimazole 5 Mg Tablet1 Mg PO DAILY 08/13/16 History History of ENT Problems?: Yes HEENT History: Positive for:: Dysphagia (OCCASIONAL) Sinus Problem Denies:: Abnormal Airway Cataracts (S/P repair) Difficult Intubation Hearing Problem Denture Type: Full- Upper Partial- Lower Teeth Condition: Missing Teeth Hx of Heart Problems?: Yes Cardiovascular History: Positive for:: Atrial Fibrillation Chest Pain Hypertension Denies:: AICD Cardiac Surgery Congestive Heart Failure Edema Heart Murmur Irregular Heartbeat Pacemaker Thrombophlebitis Valvular Heart Disease Hx of Respiratory Problem?: Yes Respiratory History: Positive for:: Asthma Denies:: COPD Chest Surgery Cough Dyspnea Emphysema Hemoptysis Pneumonia Tuberculosis Hx Neurologic Problems?: Yes Neurological History: Positive for:: Dementia Dizziness Denies:: Alzheimer's Disease CVA Headaches Parkinson's Disease Seizures Hx of GI Problems?: Yes Hx of Problems?: Yes Genitourinary History: Positive for:: Urinary Tract Infection Denies:: HX of Hemodialysis Kidney Stones HX of Peritoneal Dialysis: No Female Hx: Positive for:: Problems with Breasts? (Fibroid) Denies:: Currently Endometriosis Pelvic Inflammatory Hx Musculoskeletal Problems?: Yes Musculoskeletal History: Positive for:: Back Injury (Scoliosis, bulging disk) Fibromyalgia Denies:: Joint Replacement Musculoskeletal Trauma Hx of Psycho/Social Problems?: Yes Psycho Social History: Positive for:: Anxiety Denies:: Bipolar Disorder Hx Depression Suicide Attempt Hx Surgeries?: Yes (HYSTERECTOMY, KIDNEY, BREAST, GALLBLADDER, L FOOT, BLADDER, L SHOULDER) Hx Any Other Health Problems?: Yes Other History: Positive for:: Hospitalization Thyroid Disease Denies:: Cancer History Blood Transfusions: Denies:: Blood Transfuse Reaction Blood Transfusions Hx Diabetes: No Hx Alcohol Use: NoHx Substance Use: No Smoking Status: Former Smoker Have You Smoked inLast 12 mo: No Stop/Bang Treated for Sleep Apnea?: No Do You Have a CPAP Machine?: No S-Snoring: Do You Snore Loudly: No T-Tired: feel tired, fatigued: Yes O-Obsered: Observed not breath: No P-Blood Pressure: treated: Yes B- Body Mass Index > 35 kg/m2: No A- Age over 50: Yes N- Neck Large Circumference: No G- Gender Male: No EVY Total Score: 3 EVY Category 2: Yes Risk Assessment Category Category 1A: Patient has history of documented sleep apnea, and HAS NOT received any narcotic, sedative or anesthesia administration during this stay. Category 1B: Patient has history of documented sleep apnea, and HAS received any narcotic , sedative or anesthesia administration during this stay Category 2: Patient has SUSPECTED Obstructive Sleep Apnea, and HAS received any narcotic , sedative or anesthesia administration during this stay. Category 3: Patient has SUSPECTED Obstructive Sleep Apnea and HAS NOT received narcotic, sedative or anesthesia administration during this stay. Category 4: Outpatient in Procedural Areas with known sleep apnea or who screen positive for High Risk via the STOP/BANG questionnaire. Exam Exam Vital Signs Vital Signs Date Time Temp Pulse Resp B/P Pulse Ox O2 Delivery O2 Flow Rate FiO2 10/04/16 07:21 36.8 46 14 114/60 100 Room Air General Appearance: Alert, Oriented X3, Cooperative, No Acute Distress HEENT/AIRWAY: MP 2 Lungs: Normal Air Movement Heart: Exam Unremarkable Plan Impression Patient chart reviewed, patient interviewed and anesthestic plan with risks, benefits, and alternatives discussed, and informed consent obtained. ASA Physical Status: ASA2 Mod Systemic Disease Anesthetic Plan: MAC Bene/Risks/Altern/Consents: Yes HP Complete Prior to Induction: Yes Blake Perdue MD Oct 04, 2016 07:52
[2016-10-04] MEDS ORDERED: Ondansetron 2 mg/mL 2 mL Inj IVPUSH PRN (07:55)
[2016-10-04] MEDS ORDERED: MetoCLOpramide 5 mg/mL 2 mL Inj IVPUSH PRN (07:55)
[2016-10-04 08:25] VITALS: BP 89/50; PULSE 67; RESP 14; O2SAT 98
--- NOTE | 2016-10-04 08:27 | PCM.ANEP1 ---
Post Anesthesia PACU Phase 1 Assessment Date of Service: Oct 04, 2016 Vital Signs Vital Signs Date Time Temp Pulse Resp B/P Pulse Ox O2 Delivery O2 Flow Rate FiO2 10/04/16 08:25 36.5 67 14 89/50 98 Room Air 10/04/16 07:21 36.8 46 14 114/60 100 Room Air Anesthetic Administered: MAC Level of Alertness: Awake, talking ANDRADE's with Equal Strength: Yes Pain: No Nausea or Vomiting: No CV Function & Hydration Stable: Yes Airway Device: Oxygen Delivery: Room Air Lungs: Normal Air Movement PACU Phase 2 Assessment Complications: No Follow up Care: N/A Patient Instructions Provided: N/A Blake Perdue MD Oct 04, 2016 08:27
[2016-10-04 08:35] VITALS: BP 90/52; PULSE 69; RESP 16; O2SAT 100
[2016-10-04 08:39] VITALS: BP 123/62; PULSE 62; RESP 16; O2SAT 100
--- NOTE | 2016-10-04 08:55 | ENDO ---
[address] [address] ENDOSCOPY PROCEDURE PATIENT: OCTAVIO MENCHACA : 1945 MR#: [id number] ADMIT: 10/04/2016 JOB ID: [id number] DATE OF SERVICE: 10/04/2016 TYPE OF OPERATION: 1. Esophagogastroduodenoscopy with biopsy. 2. Colonoscopy with biopsy. PREOPERATIVE DIAGNOSIS(ES): 1. Gastroesophageal reflux disease. 2. Rectal bleeding. POSTOPERATIVE DIAGNOSIS(ES): 1. Mild nonerosive gastritis. 2. Small internal hemorrhoids. 3. A 2 mm sigmoid polyp, removed with cold biopsy forceps. ANESTHESIA: Monitored anesthesia care. COMPLICATIONS: None. BLOOD LOSS: Minimal. DESCRIPTION OF PROCEDURE: After risks and benefits were explained to the patient, informed consent was obtained. After anesthesia administered, upper endoscope was inserted in mouth intubating to the esophagus, stomach, second portion of duodenum. Mucosa carefully examined. After procedure was done, the scope was withdrawn and the procedure terminated. A colonoscope was inserted from rectum to the cecum. Mucosa carefully examined. Prep of the patient was excellent. After the procedure was done, the scope was withdrawn and the procedure terminated. FINDINGS: Upon inspection of the esophagus, esophagus was normal without masses, ulcers, or lesions. Z-line located at 40 cm from incisors. Upon entering stomach, the stomach also appeared normal without masses, except there was mild nonerosive gastritis. The duodenal bulb, first and second portions were normal. Biopsies taken at the antrum, body and distal esophagus. Upon inspection of the anus, no masses, hemorrhoids, ulcers, or fissures that were seen throughout the entire examination. There was a 2 mm sigmoid polyp removed by cold biopsy forceps. There was also a small internal hemorrhoid seen on retroflexion. No other polyps or masses were seen. IMPRESSION: 1. Mild nonerosive gastritis. 2. Small internal hemorrhoids. 3. A 2 mm sigmoid polyp, removed by cold biopsy forceps. RECOMMENDATION: Await pathology results. Follow up with in GI clinic as needed. If tubular adenoma, then repeat colonoscopy in five years.
--- NOTE | 2016-10-05 14:43 | PATH ---
SURGICAL PATHOLOGY Attending Physician:Marvin Pereira MD CASE STATUS: Signed Out PATIENT NAME: OCTAVIO MENCHACA PID: [id number] : 1945 DATE COLLECTED:10/04/2016 16:28 SPECIMEN: 1: Stomach, Antrum, Biopsy 2: Gastric, Biopsy 3: Esophagus, Biopsy 4: Colon, Polyp CLINICAL HISTORY: R/O H.PYLORI 1. ANTRUM BIOPSY 2. GASTRIC BODY BIOPSY 3. DISTAL ESOPHAGUS BIOPSY 4. SIGMOID POLYP FINAL DIAGNOSIS: 1.GASTRIC ANTRUM BIOPSY: MUCOSAL HYPEREMIA WITHOUT ASSOCIATED SIGNIFICANT INFLAMMATION INVOLVING ANTRAL MUCOSA. Negative for evidence of Helicobacter on H&E stain. Negative for intestinal metaplasia. Negative for dysplasia and malignancy. 2.GASTRIC BODY BIOPSIES: SUPERFICIAL MUCOSAL HYPEREMIA WITHOUT ASSOCIATED SIGNIFICANT INFLAMMATION INVOLVING FUNDIC MUCOSA. Negative for evidence of Helicobacter on H&E stain. Negative for intestinal metaplasia. Negative for dysplasia and malignancy. 3.DISTAL ESOPHAGUS BIOPSY: FRAGMENTS OF SQUAMOUS MUCOSA AND GASTRIC CARDIA-TYPE MUCOSA WITH CHRONIC INFLAMMATION AND REACTIVE EPITHELIAL CHANGES. Negative for specialized metaplasia of Martinez' s-type esophagus. Negative for dysplasia and malignancy. Negative for squamous intraepithelial eosinophils. 4.SIGMOID COLON POLYP: HYPERPLASTIC POLYP. ICD10 K63.5 GROSS DESCRIPTION: The specimen is received in four formalin filled containers labeled with the patient's name. 1). The specimen is sublabeled "antrum" and consists of 2 portions of tissue which aggregate to 0.3 x 0.3 x 0.2 CM. The specimen is entirely submitted in cassette 1A. 2). The specimen is sublabeled "gastric body" and consists of 2 portions of tissue which aggregate to 0.4 x 0.3 x 0.2 CM. The specimen is entirely submitted in cassette 2A. 3). The specimen is sublabeled "distal esophagus" and consists of 2 portions of tissue which aggregate to 0.4 x 0.3 x 0.2 CM. The specimen is entirely submitted in cassette 3A. 4). The specimen is sublabeled "sigmoid colon polyp" and consists of a 0.3 x 0.3 x 0.2 CM portion of tissue which is entirely submitted in cassette 4A. 10/04/2016 DAC MICRO DESCRIPTION: See diagnosis. ICD-9 CODES: CPT CODES: 1: 61840 2: 27781 3: 84681 4: 05341 Electronically Signed Out Zander Patterson MD [facility] [address], [place] [address] Technical component performed at [facility], [address], [place], [address]
== END 2016-10-04 23:59 | disposition home or self-care (01) ==
LOC: END 00:07
PROVIDERS: ATTEND Internal Medicine Gastroenterology
DX: K62.5 Hemorrhage of anus and rectum (principal); K63.5 Polyp of colon; K64.8 Other hemorrhoids; K29.70 Gastritis, unspecified, without bleeding; K21.9 Gastro-esophageal reflux disease without esophagitis; R00.1 Bradycardia, unspecified; E03.9 Hypothyroidism, unspecified; I34.8 Other nonrheumatic mitral valve disorders; G47.30 Sleep apnea, unspecified; I73.00 Raynaud's syndrome without gangrene; G89.4 Chronic pain syndrome; Z79.82 Long term (current) use of aspirin; Z79.51 Long term (current) use of inhaled steroids
CPT/HCPCS: 43239; 45380; J7120